=== PATIENT | female | born 1990 | race Asian ===

== ENCOUNTER → 2016-12-19 | Outpatient (CLI) | payer OTHER | LOC: COL.RAD 07:41 | DX: E05.90 Thyrotoxicosis, unspecified without thyrotoxic crisis or storm (principal) | CPT/HCPCS: A9516 ==

== ENCOUNTER → 2018-12-25 | Outpatient (CLI) | payer OTHER | LOC: COL.RAD 09-23 10:30 | DX: N97.9 Female infertility, unspecified (principal); Z53.8 Procedure and treatment not carried out for other reasons | CPT/HCPCS: Q9967 ==

== ENCOUNTER → 2018-12-29 | Outpatient (CLI) | payer OTHER | LOC: COL.RAD 09:04 | DX: N97.9 Female infertility, unspecified (principal) | CPT/HCPCS: Q9967 ==